=== PATIENT | male | born 1950 | race Caucasian/White ===

== ENCOUNTER 2019-07-07 08:47 | Observation (INO) | payer MEDICARE, MEDICAID ==
[~2019-07-07] VITALS: Ht 167.6 cm; Wt 85.0 kg
[~2019-07-07 08:47] MED LIST: CEPH-572 PO; HYDR-4383 PO; SULF1TAB49 PO
[2019-07-07 09:32] LABS: BASOPHILS % (AUTO) 0.5 % (0-1); EOSINOPHILS # (AUTO) 0.2 X10'3 (0-0.9); EOSINOPHILS % (AUTO) 2.3 % (0-6); HEMATOCRIT 40.6 % (42.0-52.0); HEMOGLOBIN 14.2 g/dl (14.0-17.9); LYMPHOCYTES # (AUTO) 0.9 X10'3 (1.1-4.8); MEAN CORPUSCULAR HEMOGLOBIN 33.2 PG (27.0-31.0); MEAN CORPUSCULAR VOLUME 94.6 FL (78-98); MEAN PLATELET VOLUME 6.7 FL (7.4-10.4); MONOCYTES # (AUTO) 0.5 X10'3 (0-0.9); MONOCYTES % (AUTO) 6.1 % (2-12); NEUTROPHILS # (AUTO) 7.2 X10'3 (1.8-7.7); NEUTROPHILS % (AUTO) 81.1 % (42-75); PLATELET COUNT 302 X10'3 (140-440); RED BLOOD COUNT 4.29 X10'6 (4.70-6.10); RED CELL DISTRIBUTION WIDTH 13.9 % (11.5-14.5); WHITE BLOOD COUNT 8.9 X10'3 (4.5-11.0)
[2019-07-07 09:46] LABS: ANION GAP 8 (8-16); BILIRUBIN,TOTAL 0.4 MG/DL (0.1-1.0); BLOOD UREA NITROGEN 16 MG/DL (7-18); CALCIUM 9.1 MG/DL (8.5-10.1); CHLORIDE 104 MMOL/L (99-107); CREATININE 0.89 MG/DL (0.60-1.10); GLUCOSE 155 MG/DL (70-104); POTASSIUM 3.8 MMOL/L (3.5-5.1); SODIUM 138 MMOL/L (135-145); TOTAL CARBON DIOXIDE 25.6 MMOL/L (24-32); TOTAL PROTEIN 8.3 G/DL (6.4-8.2); eGFR 85 ML/MIN
[2019-07-07 09:47] LABS: ALANINE AMINOTRANSFERASE 32 U/L (12-78); ALBUMIN 3.2 G/DL (3.4-5.0); ALBUMIN/GLOBULIN RATIO 0.6 (1.1-1.5); ALKALINE PHOSPHATASE 103 IU/L (46-116); ASPARTATE AMINO TRANSFERASE 22 U/L (10-37)
[2019-07-07 09:53] LABS: PARTIAL THROMBOPLASTIN TIME 28 SECONDS (22-32)
--- NOTE | 2019-07-07 09:57 | NUR ---
patient lethargic, slightly slurring words, pupils pinpoint, drifts off when he is talkin, denies narcotic or amphetamine use: "only tylenol"
--- NOTE | 2019-07-07 10:18 | NUR ---
discussed with dr leal patient extreme drowsiness, not answering qustions properly, pupils pinpoint, noted GI workup for ascites/portal hypertension in the recent past; order for ammonia level
--- NOTE | 2019-07-07 10:40 | NUR ---
patient states "when I have it" when asked about last etoh and drifts off to sleep, ammonia drawn
--- NOTE | 2019-07-07 11:30 | NUR ---
discussed with dr leal about patient's ammonia level is wnl and patietn still lethargic and minimally responsive, asked about ct scan; no orders recieved
[2019-07-07] MEDS ORDERED: normal saline 1000ML IV soln IVB ONE (12:30)
--- NOTE | 2019-07-07 12:39 | NUR ---
PT TO CT
[2019-07-07 13:23] LABS: ETHANOL < 0.010 GM/DL (0.0-0.010); LIPASE 184 U/L (73-393)
[2019-07-07 14:07] LABS: CLARITY,URINE CLEAR (Clear); COLOR,URINE YELLOW (Yellow); GLUCOSE, URINE NEGATIVE (Neg); KETONES,URINE NEGATIVE (Neg); LEUKOCYTE ESTERASE ,URINE NEGATIVE (Neg); NITRITES, URINE NEGATIVE (Neg); OCCULT BLOOD,URINE NEGATIVE (Neg); PH,URINE 6.5 (4.8-8.0); PROTEIN,URINE 30 mg/dl (Neg)
[2019-07-07 14:12] LABS: URINE AMPHETAMINE SCREEN POSITIVE (Neg); URINE BARBITUATE SCREEN NEGATIVE (Neg); URINE BENZODIAZEPINES SCREEN NEGATIVE (Neg); URINE CANNABINOID SCREEN NEGATIVE (Neg); URINE COCAINE SCREEN NEGATIVE (Neg); URINE METHADONE SCREEN NEGATIVE (Neg); URINE OPIATE SCREEN NEGATIVE (Neg); URINE PHENCYCLIDINE SCREEN NEGATIVE (Neg)
[2019-07-07 14:13] LABS: UA COLLECTION TYPE VOIDED
[2019-07-07 14:15] LABS: MUCUS STRANDS NONE SEEN /LPF (Neg); SQUAMOUS EPITHELIAL CELL,UR NONE SEEN /LPF (FEW)
[2019-07-07 14:16] LABS: BACTERIA,URINE NONE SEEN /HPF (Neg); RBC,URINE 0-2 /HPF (0-2); WBC,URINE NONE SEEN /HPF (0-4)
[2019-07-07] MEDS ORDERED: GABA-532 PO (15:34)
[2019-07-07] MEDS ORDERED: CELE-28 PO (15:34)
[2019-07-07] MEDS ORDERED: FLO0.4C PO (15:34)
[2019-07-07] MEDS ORDERED: ACET-75 PO (15:34)
[2019-07-07] MEDS ORDERED: LISI10TA4 PO (15:34)
[2019-07-07] MEDS ORDERED: HYDROcodone/acetaminophen 5mg/325mg tablet PO PRN (17:20)
[2019-07-07] MEDS ORDERED: ondansetron/PF 4mg/2ml inj IV PRN (17:20)
[2019-07-07] MEDS ORDERED: acetaminophen 325mg tablet PO PRN ×2 (17:20)
[2019-07-07] MEDS ORDERED: magnesium 4gm in 100ml NS 100 ML IV PRN (17:20)
[2019-07-07] MEDS ORDERED: magnesium Cl slow-release 64mg tablet PO PRN (17:20)
[2019-07-07] MEDS ORDERED: magnesium 2GM in 50ml NS 50 ML IV PRN (17:20)
[2019-07-07] MEDS ORDERED: magnesium hydroxide 30ml (MOM) UD suspension PO PRN (17:20)
[2019-07-07] MEDS ORDERED: potassium Cl 20 mEq SR tablet PO PRN ×2 (17:20)
[2019-07-07] MEDS ORDERED: HYDROcodone/acetaminophen 10/325mg tab PO PRN (17:20)
[2019-07-07] MEDS ORDERED: mag hydrox/Alum hydrox/simeth 30ml oral suspension PO PRN (17:20)
[2019-07-07] MEDS ORDERED: potassium CL 10mEq/100ml bag 100 ML IV PRN ×2 (17:20)
[2019-07-07] MEDS ORDERED: ACETAMINOPHEN 500 MG PO PRN (17:25)
[2019-07-07] MEDS ORDERED: celeCOXIB 100mg capsule PO PRN (17:25)
[2019-07-07 18:38] LABS: HEMOGLOBIN A1C 5.4 % (4.5-6.2)
[2019-07-07] MEDS: normal saline 1000ml 1,000 ML IV SCH (19:04)
--- NOTE | 2019-07-07 19:38 | NUR ---
PATEINT ATE 100 % OF HIS DINNER; PATIENT IS SIGNIFICANTLY MORE ALERT. I HAD A CONVERSATION WITH HIM. HE NOW ADMITS TO USING SOME METH THIS AM AND TAKING SOPME BLUE PILLS VOIDED 800 ML
--- NOTE | 2019-07-07 19:58 | NUR ---
PATIENT DOES NOT REMEMBER HIS HOME MEDICATIONS.
[2019-07-07 20:30] VITALS: BP 144/92
[2019-07-07] MEDS: gabapentin 300mg capsule PO SCH (20:49)
[2019-07-07] MEDS ORDERED: temazepam 15mg capsule PO PRN (21:00)
[2019-07-08] MEDS: normal saline 1000ml 1,000 ML IV SCH (04:52)
[2019-07-08 06:10] VITALS: BP 143/89
--- NOTE | 2019-07-08 06:10 | NUR ---
Problems reprioritized. Patient report given, questions answered & plan of care reviewed with KING Alejandro.
--- NOTE | 2019-07-08 06:30 | NUR ---
I have received patient report from Lori Adame RN
[2019-07-08 06:41] LABS: HEMATOCRIT 41.5 % (42.0-52.0); HEMOGLOBIN 14.3 g/dl (14.0-17.9); MEAN CORPUSCULAR HEMOGLOBIN 32.7 PG (27.0-31.0); MEAN CORPUSCULAR HGB CONC 34.4 g/dL (33.0-36.5); MEAN CORPUSCULAR VOLUME 95.2 FL (78-98); MEAN PLATELET VOLUME 7.1 FL (7.4-10.4); PLATELET COUNT 299 X10'3 (140-440); RED BLOOD COUNT 4.36 X10'6 (4.70-6.10); RED CELL DISTRIBUTION WIDTH 13.5 % (11.5-14.5)
[2019-07-08 06:51] LABS: ALBUMIN 2.9 G/DL (3.4-5.0); ANION GAP 10 (8-16); BLOOD UREA NITROGEN 13 MG/DL (7-18); BUN/CREATININE RATIO 15.1 (5.4-32.0); CALCIUM 8.7 MG/DL (8.5-10.1); CHLORIDE 106 MMOL/L (99-107); CHOL/HDL RATIO 4.7 (0.00-4.99); CHOLESTEROL 154 MG/DL (0-200); CREATININE 0.86 MG/DL (0.60-1.10); GLUCOSE 85 MG/DL (70-104); HDL CHOLESTEROL 33 MG/DL (35-60); LDL CHOLESTEROL 106 MG/DL (50-100); MAGNESIUM 1.8 MG/DL (1.5-2.4); SODIUM 141 MMOL/L (135-145); TOTAL CARBON DIOXIDE 25.5 MMOL/L (24-32); TRIGLYCERIDES 76 MG/DL (20-135); eGFR 88 ML/MIN
[2019-07-08] MEDS: gabapentin 300mg capsule PO SCH ×2 (07:42→13:38)
[2019-07-08] MEDS ORDERED: enoxaparin 40mg/0.4ml syringe SUBCUT SCH (08:00)
[2019-07-08] MEDS ORDERED: lisinopril 10 MG tablet PO SCH (08:00)
[2019-07-08] MEDS ORDERED: K and/or MAG REPLACEMENT MC SCH (08:00)
[2019-07-08] MEDS ORDERED: tamsulosin 0.4mg capsule PO SCH (08:00)
[2019-07-08 10:00] VITALS: BP_SYST 132; BP_SYST 137; BP_SYST 138; BP_DIAS 72; BP_DIAS 78; BP_DIAS 83
[2019-07-08] MEDS ORDERED: ATOR40TA PO (12:20)
--- NOTE | 2019-07-08 16:00 | NUR ---
Patient discharged at this time and wheeled down to [facility]. He had his belongings and a new script for Lipitor and I taught his about this new med. Education also provided by Breanna Patel about different Dr.s he can see about pain management since he is using drugs for his pain.
== END 2019-07-08 15:55 | disposition home or self-care (01) ==
LOC: ER 08:48 → ORTHO 4S 20:12
PROVIDERS: ADMIT Family Medicine; ATTEND Family Medicine
DX: I10 Essential (primary) hypertension (principal); G92 Toxic encephalopathy; N40.0 Benign prostatic hyperplasia without lower urinary tract symptoms; G89.29 Other chronic pain; M51.9 Unspecified thoracic, thoracolumbar and lumbosacral intervertebral disc disorder; E78.5 Hyperlipidemia, unspecified; Z72.0 Tobacco use; F15.10 Other stimulant abuse, uncomplicated; T43.621A Poisoning by amphetamines, accidental (unintentional), initial encounter; Y92.89 Other specified places as the place of occurrence of the external cause; R03.0 Elevated blood-pressure reading, without diagnosis of hypertension; Z98.890 Other specified postprocedural states; R42 Dizziness and giddiness
CPT/HCPCS: 36415; 70450; 70544; 70551; 71045; 80048; 80053; 80061; 80305; 80320; 81001; 82140; 82948; 83036; 83690; 83735; 83880; 84443; 84484; 85025; 85027; 85610; 85730; 87081; 93005; 93306; 93880; 96360; 96361; 96372; 97161; 97530; 99284; G0378; J7030; J1650

== ENCOUNTER 2024-10-03 11:23 | Emergency (ER) | payer BC, MEDICAID ==
[~2024-10-03] VITALS: Ht 170.2 cm; Wt 72.7 kg
[~2024-10-03 11:23] MED LIST changes: +ACET-75 PO; +CELE-389 PO; -CEPH-572 PO; +FLO0.4C PO; +GABA-532 PO; -HYDR-4383 PO; +LISI10TA27 PO; -SULF1TAB49 PO
[2024-10-03 17:55] LABS: BASOPHILS % (AUTO) 0.8 % (0-1); EOSINOPHILS # (AUTO) 0.2 X10'3 (0-0.9); HEMATOCRIT 39.4 % (42.0-52.0); HEMOGLOBIN 13.1 g/dl (14.0-17.9); LYMPHOCYTES # (AUTO) 1.5 X10'3 (1.1-4.8); LYMPHOCYTES % (AUTO) 25.8 % (21-51); MEAN CORPUSCULAR HEMOGLOBIN 33.4 PG (27.0-31.0); MEAN CORPUSCULAR HGB CONC 33.3 g/dL (33.0-36.5); MEAN CORPUSCULAR VOLUME 100.3 FL (78-98); MEAN PLATELET VOLUME 7.4 FL (7.4-10.4); MONOCYTES # (AUTO) 0.8 X10'3 (0-0.9); MONOCYTES % (AUTO) 13.9 % (2-12); NEUTROPHILS # (AUTO) 3.1 X10'3 (1.8-7.7); NEUTROPHILS % (AUTO) 55.5 % (42-75); PLATELET COUNT 213 X10'3 (140-440); RED BLOOD COUNT 3.92 X10'6 (4.70-6.10); RED CELL DISTRIBUTION WIDTH 14.4 % (11.5-14.5); WHITE BLOOD COUNT 5.6 X10'3 (4.5-11.0)
[2024-10-03 18:08] LABS: ALANINE AMINOTRANSFERASE 14 U/L (12-78); ALBUMIN 3.3 G/DL (3.4-5.0); ALBUMIN/GLOBULIN RATIO 0.7 (1.1-1.5); ALKALINE PHOSPHATASE 68 IU/L (46-116); ANION GAP 8 (8-16); ASPARTATE AMINO TRANSFERASE 14 U/L (10-37); BILIRUBIN,TOTAL 0.2 MG/DL (0.1-1.0); BLOOD UREA NITROGEN 30 MG/DL (7-18); BUN/CREATININE RATIO 23.6 (10.0-20.0); CALCIUM 9.2 MG/DL (8.5-10.1); CHLORIDE 108 MMOL/L (99-107); CREATININE 1.27 MG/DL (0.60-1.10); GLUCOSE 108 MG/DL (70-104); POTASSIUM 4.4 MMOL/L (3.5-5.1); SODIUM 142 MMOL/L (135-145); TOTAL CARBON DIOXIDE 26.1 MMOL/L (24-32); TOTAL PROTEIN 8.1 G/DL (6.4-8.2); eCRCL 48 ML/MIN; eGFR 55 ML/MIN
[2024-10-03 18:16] LABS: MAGNESIUM 2.1 MG/DL (1.5-2.4); PRO BRAIN NATRIURETIC PEPTIDE 648 PG/ML (0-125)
[2024-10-03 21:04] LABS: BILIRUBIN,URINE NEGATIVE (Neg); CLARITY,URINE CLOUDY (Clear); COLOR,URINE YELLOW (Yellow); GLUCOSE, URINE NEGATIVE (Neg); KETONES,URINE NEGATIVE (Neg); LEUKOCYTE ESTERASE ,URINE MODERATE (Neg); NITRITES, URINE POSITIVE (Neg); OCCULT BLOOD,URINE TRACE-INTACT (Neg); PROTEIN,URINE 30 mg/dl (Neg); UROBILINOGEN,URINE 0.2 E.U/dL (0.2-1.0)
[2024-10-03 21:09] LABS: UA COLLECTION TYPE CLN CATCH MIDSTREAM
[2024-10-03 21:10] LABS: BACTERIA,URINE 3+ /HPF (Neg); RBC,URINE 0-2 /HPF (0-2); SQUAMOUS EPITHELIAL CELL,UR FEW /LPF (FEW); WBC,URINE TNTC /HPF (0-4)
[2024-10-04] MEDS: CefTRIAXone 2gm/D5W 50ml BAG 50 ML IV ONE (06:37)
[2024-10-04] MEDS ORDERED: PANT-47 PO (06:48)
[2024-10-04] MEDS ORDERED: AMLO2.5T2 PO (06:49)
[2024-10-04] MEDS ORDERED: HYDR200T73 PO (06:50)
[2024-10-04] MEDS ORDERED: LISI20TA28 PO (06:52)
[2024-10-04] MEDS ORDERED: ATOR10TA87 PO (06:52)
[2024-10-04] MEDS ORDERED: OXCA150T5 PO (06:53)
[2024-10-04] MEDS ORDERED: PRED5TAB PO (06:53)
[2024-10-04] MEDS ORDERED: SULF500T9 PO (06:54)
[2024-10-04] MEDS ORDERED: DIVA500T4 PO (06:55)
[2024-10-04] MEDS: sulfamethoxazole/trimethoprim DS (800/160mg) tablet PO SCH (07:56)
[2024-10-04] MEDS ORDERED: magnesium sulf-water 4G/100mL 100 ML IV PRN (08:05)
[2024-10-04] MEDS ORDERED: magnesium hydroxide 30ml (MOM) UD suspension PO PRN (08:05)
[2024-10-04] MEDS ORDERED: acetaminophen 325mg tablet PO PRN ×2 (08:05)
[2024-10-04] MEDS ORDERED: potassium Cl 20 mEq SR tablet PO PRN ×2 (08:05)
[2024-10-04] MEDS ORDERED: potassium Cl 40MEQ/1/2NS 520ml 520 ML IV PRN (08:05)
[2024-10-04] MEDS ORDERED: mag hydrox/Alum hydrox/simeth 30ml oral suspension PO PRN (08:05)
[2024-10-04] MEDS ORDERED: ondansetron/PF 4mg/2ml inj IV PRN (08:05)
[2024-10-04] MEDS ORDERED: HYDROcodone/acetaminophen 5mg/325mg tablet PO PRN (08:05)
[2024-10-04] MEDS ORDERED: magnesium sulf-water 2g/50mL 50 ML IV PRN (08:05)
[2024-10-04] MEDS ORDERED: HYDROcodone/acetaminophen 10/325mg tab PO PRN (08:05)
[2024-10-04] MEDS: acetaminophen 325mg tablet PO ONE (13:34)
[2024-10-04] MEDS: divalproex sod 250mg ER (24-hour) tablet PO ONE (13:34)
[2024-10-04] MEDS: oxcarbazepine 150mg tablet PO ONE (13:35)
[2024-10-04] MEDS ORDERED: SULF1TAB49 PO (16:58)
[2024-10-04] MEDS: oxcarbazepine 150mg tablet PO SCH (19:56)
[2024-10-04] MEDS ORDERED: K and/or MAG REPLACEMENT MC SCH (20:00)
[2024-10-04] MEDS ORDERED: docusate sod 100mg capsule PO SCH (20:00)
[2024-10-04] MEDS ORDERED: heparin, porcine 5000 units/ml vial SQ SCH (20:00)
[2024-10-05 03:05] VITALS: TEMP 98
[2024-10-05] MEDS: divalproex sod 250mg ER (24-hour) tablet PO ONE (07:46)
[2024-10-05] MEDS ORDERED: divalproex sod 250mg ER (24-hour) tablet PO SCH (08:30)
[2024-10-05 16:45] VITALS: BP 146/86; PULSE 56; RESP 17; O2SAT 96
[2024-10-06] MEDS ORDERED: divalproex sod 250mg ER (24-hour) tablet PO SCH (08:30)
== END 2024-10-05 16:47 | disposition home or self-care (01) ==
LOC: ER 11:24 → ED HOLD 10-04 08:05 → UNDOADMIN 10-04 08:05 → EDBEDREQ 10-04 09:17 → ED HOLD 10-05 08:05 → UNDOADMIN 10-05 08:05 → UNDODISIN 10-05 16:45
DX: Z73.6 Limitation of activities due to disability (principal); Z79.899 Other long term (current) drug therapy; Z79.1 Long term (current) use of non-steroidal anti-inflammatories (NSAID)
CPT/HCPCS: 36415; 80053; 81001; 83605; 83735; 83880; 85025; 87077; 87088; 87186; 93306; 97161; 97530; 97535; 99285; A4615; A4620; G0378

== ENCOUNTER 2024-10-05 18:34 | Emergency (ER) | payer BC ==
[~2024-10-05] VITALS: Ht 170.2 cm; Wt 75.9 kg
[~2024-10-05 18:34] MED LIST changes: +AMLO2.5T2 PO; +ATOR10TA87 PO; -CELE-389 PO; +DIVA500T4 PO; -FLO0.4C PO; -GABA-532 PO; +HYDR200T73 PO; -LISI10TA27 PO; +LISI20TA28 PO; +OXCA150T5 PO; +PANT-47 PO; +PRED5TAB PO; +SULF1TAB49 PO; +SULF500T9 PO
[2024-10-06 05:13] VITALS: BP 144/70; PULSE 77; RESP 17; TEMP 98.1; O2SAT 98
== END 2024-10-06 05:14 | disposition home or self-care (01) ==
LOC: ER 18:35
DX: Z00.00 Encounter for general adult medical examination without abnormal findings (principal); F10.90 Alcohol use, unspecified, uncomplicated; G89.29 Other chronic pain; M54.9 Dorsalgia, unspecified; I10 Essential (primary) hypertension; Z98.890 Other specified postprocedural states; Z79.899 Other long term (current) drug therapy
CPT/HCPCS: 99281